=== PATIENT | female | born 1965 | race American Indian/Alaskan Native ===

== ENCOUNTER 2020-01-08 07:12 | Emergency (ER) | payer OTHER ==
[2020-01-08 07:25] VITALS: BP 135/88
[2020-01-08] MEDS ORDERED: ASPIRIN 325 MG TAB PO ONE (07:34)
[2020-01-08 07:54] LABS: Basophils # (Auto) 0.1 K/mm3 (0.0-0.1); Basophils % (Auto) 0.8 % (0.0-1.8); Eosinophils # (Auto) 0.1 K/mm3 (0.0-0.4); Hematocrit 40.1 % (30.3-42.9); Hemoglobin 12.9 gm/dl (10.1-14.3); Lymphocytes # (Auto) 1.6 K/mm3 (1.2-5.4); Lymphocytes % (Auto) 25.4 % (13.4-35.0); Mean Corpuscular HGB Conc 32 % (30-34); Mean Corpuscular Volume 81 fl (79-97); Monocytes # (Auto) 0.6 K/mm3 (0.0-0.8); Monocytes % (Auto) 8.9 % (0.0-7.3); Platelet Count 188 K/mm3 (140-440); Red Blood Count 4.96 M/mm3 (3.65-5.03); Red Cell Distribution Width 15.3 % (13.2-15.2)
[2020-01-08 08:17] LABS: Blood Urea Nitrogen 12 mg/dL (7-17); Hemolysis Index 52
[2020-01-08 08:18] LABS: BUN/Creatinine Ratio 20
--- NOTE | 2020-01-08 08:47 | XRay Report ---
CHEST 2 VIEWS INDICATION / CLINICAL INFORMATION: Chest Pain. COMPARISON: None available. FINDINGS: SUPPORT DEVICES: None. HEART / MEDIASTINUM: No significant abnormality. LUNGS / PLEURA: No significant pulmonary or pleural abnormality. No pneumothorax. ADDITIONAL FINDINGS: No significant additional findings. IMPRESSION: No significant abnormality Signer Name: Carmine Núñez MD FACR Signed: 01/08/2020 8:43 AM Workstation Name: [id number]
--- NOTE | 2020-01-08 09:18 | Emergency Department Report ---
ED Chest Pain HPI - General Chief Complaint: Chest Pain Stated Complaint: CP PUI?: No Time Seen by Provider: 01/08/20 09:03 Source: patient Mode of arrival: Ambulatory Limitations: No Limitations - History of Present Illness Initial Comments: This is a 54-year-old female with no prior medical history presents the ED complaining of made chest pain that began 5 days ago. Patient states pain is localized to the mid upper chest region. Rates the pain 4 out of 10 intensity. Patient states she takes no medications currently for any medical condition. Patient states she has had a slight cough which is normal. She denies feve r/chills/nausea vomiting/shortness of breath/dizziness or headache. She denies any recent sick contact MD Complaint: chest pain - Related Data Allergies Allergy/AdvReac Type Severity Reaction Status Date / Time No Known Allergies Allergy Unverified 04/08/13 11:54 Heart Score - HEART Score History: Slightly suspicious EKG: Normal Age: 45-65 Risk factors: No known risk factors Troponin: < normal limit HEART Score: 1 ED Review of Systems ROS: Stated complaint: CP Other details as noted in HPI Comment: All other systems reviewed and negative ED Past Medical Hx - Past Medical History Previous Medical History?: No - Surgical History Past Surgical History?: No - Social History Smoking Status: Never Smoker Substance Use Type: None ED Physical Exam - General Limitations: No Limitations General appearance: alert, in no apparent distress - Head Head exam: Present: atraumatic, normocephalic - Eye Eye exam: Present: normal appearance - ENT ENT exam: Present: mucous membranes moist - Neck Neck exam: Present: normal inspection - Respiratory Respiratory exam: Present: normal lung sounds bilaterally. Absent: respiratory distress, wheezes, rales, chest wall tenderness, accessory muscle use - Cardiovascular Cardiovascular Exam: Present: regular rate, normal rhythm. Absent: systolic murmur, diastolic murmur, rubs, gallop - GI/Abdominal GI/Abdominal exam: Present: soft, normal bowel sounds - Extremities Exam Extremities exam: Present: normal inspection - Back Exam Back exam: Present: normal inspection - Neurological Exam Neurological exam: Present: alert, oriented X3 - Psychiatric Psychiatric exam: Present: normal affect, normal mood - Skin Skin exam: Present: warm, dry, intact, normal color. Absent: rash ED Course Vital Signs 01/08/20 07:20 Temperature 98.1 F Pulse Rate 76 Respiratory 18 Rate Blood Pressure 135/88 O2 Sat by Pulse 100 Oximetry NICOLE score - Nicole Score Age > 65: (0) No Aspirin use within the Past 7 Days: (0) No 3 or more CAD Risk Factors: (0) No 2 or more Angina events in past 24 hrs: (0) No Known CAD with more than 50% Stenosis: (0) No Elevated Cardiac Markers: (0) No ST Deviation Greater than 0.5mm: (0) No NICOLE Score: 0 ED Medical Decision Making - Lab Data Result diagrams: 01/08/20 07:47 01/08/20 07:47 Laboratory Last Values WBC 6.4 K/mm3 (4.5-11.0) 01/08/20 07:47 RBC 4.96 M/mm3 (3.65-5.03) 01/08/20 07:47 Hgb 12.9 gm/dl (10.1-14.3) 01/08/20 07:47 Hct 40.1 % (30.3-42.9) 01/08/20 07:47 MCV 81 fl (79-97) 01/08/20 07:47 MCH 26 pg (28-32) L 01/08/20 07:47 MCHC 32 % (30-34) 01/08/20 07:47 RDW 15.3 % (13.2-15.2) H 01/08/20 07:47 Plt Count 188 K/mm3 (140-440) 01/08/20 07:47 Lymph % (Auto) 25.4 % (13.4-35.0) 01/08/20 07:47 [place] % (Auto) 8.9 % (0.0-7.3) H 01/08/20 07:47 Eos % (Auto) 2.0 % (0.0-4.3) 01/08/20 07:47 Baso % (Auto) 0.8 % (0.0-1.8) 01/08/20 07:47 Lymph # 1.6 K/mm3 (1.2-5.4) 01/08/20 07:47 [place] # 0.6 K/mm3 (0.0-0.8) 01/08/20 07:47 Eos # 0.1 K/mm3 (0.0-0.4) 01/08/20 07:47 Baso # 0.1 K/mm3 (0.0-0.1) 01/08/20 07:47 Seg Neutrophils % 62.9 % (40.0-70.0) 01/08/20 07:47 Seg Neutrophils # 4.0 K/mm3 (1.8-7.7) 01/08/20 07:47 Sodium 139 mmol/L (137-145) 01/08/20 07:47 Potassium 4.6 mmol/L (3.6-5.0) 01/08/20 07:47 Chloride 106.5 mmol/L (98-107) 01/08/20 07:47 Carbon Dioxide 23 mmol/L (22-30) 01/08/20 07:47 Anion Gap 14 mmol/L 01/08/20 07:47 BUN 12 mg/dL (7-17) 01/08/20 07:47 Creatinine 0.6 mg/dL (0.7-1.2) L 01/08/20 07:47 Estimated GFR > 60 ml/min 01/08/20 07:47 BUN/Creatinine Ratio 20 % 01/08/20 07:47 Glucose 115 mg/dL (65-100) H 01/08/20 07:47 Calcium 9.0 mg/dL (8.4-10.2) 01/08/20 07:47 Troponin T < 0.010 ng/mL (0.00-0.029) 01/08/20 07:47 - Radiology Data Radiology results: report reviewed, image reviewed CHEST 2 VIEWS INDICATION / CLINICAL INFORMATION: Chest Pain. COMPARISON: None available. FINDINGS: SUPPORT DEVICES: None. HEART / MEDIASTINUM: No significant abnormality. LUNGS / PLEURA: No significant pulmonary or pleural abnormality. No pneumothorax. ADDITIONAL FINDINGS: No significant additional findings. IMPRESSION: No significant abnormality Signer Name: Carmine Núñez MD FACR Signed: 01/08/2020 8:43 AM Workstation Name: [id number] Transcribed By: MS Dictated By: Carmine Núñez MD Electronically Authenticated By: Carmine Núñez MD Signed Date/Time: 01/08/20 0843 - Medical Decision Making 54-year-old female presents with chest pain most likely due to costochondritis. All labs are within normal limits, troponin negative x2, EKG within normal limits, chest x-ray negative. I discussed all this findings with the patient. Patient has no medical history. Discussed follow-up with her primary care physician. Discussed follow-up with the [employer] for stress echo test. Vital signs are normal patient is in no acute distress Patient understand instructions. Critical care attestation.: If time is entered above; I have spent that time in minutes in the direct care of this critically ill patient, excluding procedure time. ED Disposition Clinical Impression: Atypical chest pain, Costochondritis Disposition: TO HOME OR SELFCARE Is pt being admited?: No Does the pt Need Aspirin: No Condition: Stable Instructions: Chest Pain (ED), Costochondritis (ED) Additional Instructions: Make sure to follow up with the primary care physician as discussed. Take naproxen or Motrin as needed for pain If you have any worsening symptoms or develop new symptoms please return to ED immediately. Referrals: PRIMARY CAREMD [Primary Care Provider] - 3-5 Days [facility] [Provider Group] - 3-5 Days Forms: Work/School Release Form(ED) Time of Disposition: 10:01
== END 2020-01-08 10:33 | disposition home or self-care (01) ==
LOC: ED 07:12
DX: M94.0 Chondrocostal junction syndrome [Tietze] (principal)
CPT/HCPCS: 36415; 71046; 80048; 84484; 85025; 93005